=== PATIENT | male | born 1980 | race Caucasian/White ===

== ENCOUNTER → 2018-12-24 | Outpatient (REF) ==
--- NOTE | 2018-12-25 01:59 | REP ---
Clinical: Lower back pain. Technique: AP, lateral, coned-down views of the lumbosacral spine. Findings: Straightening of normal lordosis is nonspecific. Vertebral bodies are intact and there is no evidence for acute fracture / compression injury or subluxation. Early advanced degenerative changes at L5-S1 includes endplate sclerosis, disc space narrowing, hypertrophic facet changes and early osteophyte formation. Moderate multilevel degenerative changes noted throughout the remainder of the lower thoracic through L4-5 levels. Impression: Degenerative spondylosis particularly involving L5-S1 and L4-5. Electronically Signed by Candido Liu MD 12/25/2018 01:50 A
== END ==
LOC: M SMT 13:57
PROVIDERS: ATTEND Internal Medicine
DX: Z00.00 Encounter for general adult medical examination without abnormal findings (principal)